=== PATIENT | female | born 2000 | race Caucasian/White ===

== ENCOUNTER 2019-09-30 14:48 | Outpatient (CLI) | payer BC ==
--- NOTE | 2019-09-30 15:01 | RAD ---
Chest 2 views HISTORY: Chest pain. FINDINGS: Cardiac silhouette and pulmonary vasculature are unremarkable. Mediastinum is midline. No c onfluent airspace consolidation, pneumothorax, or pleural fluid evident. Tiny linear metallic density overlies the anterior aspect of the left breast. Possibly related to prior biopsy. IMPRESSION : No active cardiopulmonary abnormalities are demonstrated.
== END 2019-09-30 14:49 | disposition home or self-care (01) ==
LOC: BICRAD 14:48
DX: R07.9 Chest pain, unspecified (principal)
CPT/HCPCS: 71046